=== PATIENT | male | born 1975 | race Caucasian/White ===

== ENCOUNTER 2017-12-11 17:58 | Emergency (ER) | payer MEDICAID, SELFPAY ==
[2017-12-11 17:59] VITALS: BP 114/89; PULSE 105; RESP 16; TEMP 36.6; O2SAT 99; BMI 24.1
[2017-12-11] MEDS: Ziprasidone IM 20 MG/ML VIAL IM (18:13)
[2017-12-11] MEDS: LORazepam 2 MG/ML Syringe IM (18:13)
--- NOTE | 2017-12-11 18:16 | ED.DCSUM_ITS ---
- ER Visit Summary Date of Service: 12/11/17 Chief Complaint: Overdose History of Present Illness: The patient is a 42 M with significant history of IV drug abuse presents after accidental overdose. Patient states that he was bit by a dog yesterday. History is hard to gather given the patient's drug- induced delirium. Apparently, to do with the pain, he states that he snorted methamphetamines and heroin. Patient was found apneic. He was given intranasal Narcan and became combative but was arousable. The patient began have acute withdrawal with lots of vomiting. The patient is internally stimulated. Again, history is hard to gather given his drug intoxication. Physical Examination: Afebrile. Mild tachycardia. Unkempt male in no acute distress. Patient does have evidence of multiple track mast. He will answer some questions appropriately, but has multiple repetitive motions in skin picking. There is no evidence of external trauma on his head. He does have chronic skin changes consistent with recurrent picking. His heart is regular tachycardia. His lungs are clear. His abdomen is soft. Test Results: [] Emergency Department Course and Treatment: The patient presents after mixed ingestion. He states that he was snorting methamphetamines and heroin. He was in acute withdrawal from his Narcan and had unopposed amphetamine response. Because of this, he was given Geodon and Ativan with improvement. The patient became apneic again. He was given more Narcan with resolution. The patient was observed. He is resting comfortably. He is required no more Narcan. At this time, plan will be to observe the patient until he is clinical sobriety. I am going to start the patient on oral antibiotics given his dog bite. There is no surrounding cellulitis. I do for the patient is safe for discharge as long as he is a repeat exam and can demonstrate sobriety. If anything changes, addendum will be added. Treatment Plan: [] Disposition: Likely discharge Impression: 1. Dog bite left hand, right foot 2. Acute opiate overdose 3. Methamphetamine abuse This note was generated with [employer] dictation software. It may contain incorrect words, spelling, and punctuation that were not noted in review of the chart prior to signing ED Disposition - Plan for ED Patient: Chief Complaint: Overdose Instructions: ED Overdose Opiate, ED Bite Dog Prescriptions: Doxycycline Monohydrate 100 mg PO BID #20 cap Referrals: Dora Foss [NON-STAFF] -
[2017-12-11] MEDS: Naloxone 2 MG/2 ML Syringe IV (18:42)
--- NOTE | 2017-12-11 18:46 | ED.RN ---
pt having sustained periods of apnea. dr made aware. pt given narcan. thru iv to rt upper arm.pt then awakens. begins jerking motions again. unable to control his movements
[2017-12-11 19:16] VITALS: BP 165/124; PULSE 122; RESP 32; O2SAT 98
--- NOTE | 2017-12-11 19:16 | NURSING ---
WILL OBSERVE THE PT UNTIL HE THE DRUGS HAVE WORN OFF AND HE IS NOT TRIPPING.
[2017-12-11 19:48] VITALS: BP 124/83; PULSE 76; RESP 14; O2SAT 97
[2017-12-11 21:03] VITALS: BP 112/69; PULSE 81; RESP 14; O2SAT 98
--- NOTE | 2017-12-11 21:06 | NURSING ---
PT IN RESTRAINTS FOR SAFETY REASONS. PT AGITATED AFRAID HE WOULD STRANGLE HIMSELF ON VITAL CORDS. ALSO WAS TRYING TO GET UP WHEN HE IS VERY UNSTEADY.
[2017-12-11 22:31] VITALS: BP 103/59; PULSE 71; RESP 14; O2SAT 100
[2017-12-12 00:07] VITALS: BP 105/66; PULSE 67; RESP 14; O2SAT 96
[2017-12-12 02:12] VITALS: BP 94/55; PULSE 57; RESP 16; O2SAT 100
[2017-12-12 03:34] VITALS: BP 97/57; PULSE 65; RESP 13; O2SAT 98
[2017-12-12 04:15] VITALS: BP 106/65; PULSE 57; RESP 14; O2SAT 99
[2017-12-12 06:38] VITALS: BP 114/67; PULSE 56; RESP 15; O2SAT 100
--- NOTE | 2017-12-12 06:40 | NURSING ---
CALLED JOCELYNE LEE TO PROFESSOR OF THEATRE THE PT AND TAKE HIM TO NURSING HOME. PT NOW ONLY IN 2 POINT RESTRAINTS. GAVE THE PT A DRINK AND OFFERED FOR HIM TO GO TO THE RESTROOM AND HE DID NOT. GOT HIM PAPER SCRUBS FOR D/C
[2017-12-12 07:06] VITALS: BP 108/78; PULSE 67; RESP 16; O2SAT 99
--- NOTE | 2017-12-12 07:07 | NURSING ---
RESTRAINTS D/C AND GOING TO GROUP HOME.
== END 2017-12-12 07:07 | disposition home or self-care (01) ==
PROVIDERS: Emergency Provider Emergency Medicine
DX: S61.052A Open bite of left thumb without damage to nail, initial encounter (principal); S91.351A Open bite, right foot, initial encounter; T40.1X1A Poisoning by heroin, accidental (unintentional), initial encounter; F15.10 Other stimulant abuse, uncomplicated; W54.0XXA Bitten by dog, initial encounter; Y93.9 Activity, unspecified; Y92.9 Unspecified place or not applicable; Z72.0 Tobacco use
CPT/HCPCS: 96365; 96366; 96372; 96374; 99284; J7030; A4216; J3486